=== PATIENT | male | born 1995 | race Caucasian/White ===

== ENCOUNTER 2023-02-16 10:19 | Emergency (ER) | payer OTHER, SELFPAY ==
[2023-02-16 10:29] VITALS: BP 126/82; PULSE 78; RESP 16; TEMP 36.4; O2SAT 100
--- NOTE | 2023-02-16 10:51 | ED.GENADULT ---
HPI - General Adult General Chief complaint: Upper Respiratory Infection Stated complaint: Rt Eye Irritation,Headache,Congestion Time Seen by Provider: 02/16/23 10:52 Source: patient Mode of arrival: ambulatory Limitations: no limitations History of Present Illness HPI narrative: 27-year-old male patient presents to the [facility] with complaints of URI symptoms for the past 2 days. Patient states he has had a lot of pressure to the right side of the sinuses states he takes Janki daily has not been helping. Has had a runny nose and congestion. Denies fevers, body aches or chills. Patient also states he has had some pain up to the forehead and in his head and feels like pins and needles. Patient states that also started 2 days ago. Patient denies any chest pain, shortness of breath, cough or any other concerning symptoms Related Data Home Medications Medication Instructions Recorded Confirmed fexofenadine 180 mg tablet 180 mg PO DAILY 02/16/23 02/16/23 fluticasone propionate 50 2 spray intranasal DAILY 02/16/23 02/16/23 mcg/actuation nasal spray,suspension Allergies Allergy/AdvReac Type Severity Reaction Status Date / Time No Known Allergies Allergy Verified 02/16/23 10:28 Review of Systems Review of Systems: CONSTITUTIONAL: Denies fever, chills, or sweats. EYES: Denies visual changes, redness, or discharge. ENT: positiverhinorrhea, congestion, denies sore throat, or otalgia. positive pins and needle pain to right side of forehead CARDIOVASCULAR: Denies chest pain, palpitations, or edema. RESPIRATORY: Denies cough or dyspnea. GASTROINTESTINAL: Denies abdominal pain, nausea, vomiting, or diarrhea. GENITOURINARY: Denies dysuria or hematuria. SKIN: Denies rash or itching. MUSCULOSKELETAL: Denies back pain, joint pain, or myalgia. NEUROLOGIC: Denies headache, numbness, or weakness. PSYCHIATRIC: Denies anxiety or depression. PMFSH Comments At the time of my signature I agree with nursing past medical history, surgical, social, and family history. There is no relevant family history pertinent to the presenting complaint. Exam Narrative: GENERAL: Well-appearing, well-nourished, and in no acute distress. HEAD: Normocephalic, atraumatic. EYES: PERRLA and EOMI. ENT: Nares with erythema edema noted on the right near, no rhinorrhea or epistaxis. Mucous membranes moist. posterior pharynx no erythema, tonsillar enlargement but there is postnasal drip noted. Bilateral TMs are clear no erythema or foreign bodies the canal. NECK: Supple. No lymphadenopathy CHEST: Clear to auscultation. No respiratory distress. HEART: Regular rate and rhythm. No murmur heard. Normal peripheral pulses. ABDOMEN: Soft, nontender, nondistended, normal active bowel sounds. EXTREMITIES: Normal range of motion. No edema. SKIN: Warm, dry, vesicle rash noted from the frontal lobe of the scalp around the occipital area of the right eye but no eye involvement. The rash does not cross midline. It is tender to the touch. No open wounds or drainage noted NEURO: No focal deficits. Alert and oriented x3. Course Course Level of Care: Express Care Visit Vital Signs Vital signs: Vital Signs Temperature 36.4 C 02/16/23 10:29 Pulse Rate 78 02/16/23 10:29 Respiratory Rate 16 02/16/23 10:29 Blood Pressure 126/82 02/16/23 10:29 Pulse Oximetry 100 02/16/23 10:29 Oxygen Delivery Room Air 02/16/23 10:29 Temperature 36.4 C 02/16/23 10:29 Pulse Rate 78 02/16/23 10:29 Respiratory Rate 16 02/16/23 10:29 Blood Pressure 126/82 02/16/23 10:29 Pulse Oximetry 100 02/16/23 10:29 Oxygen Delivery Room Air 02/16/23 10:29 Vital signs reviewed. Medical Decision Making MDM Narrative Medical decision making narrative: discussed with patient that it does appear that he has a shingles outbreak to the right side of the face. Discussed with patient we will put him on antivirals to decrease the length of ti
== END 2023-02-16 11:07 | disposition home or self-care (01) ==
PROVIDERS: Emergency Provider Nurse Practitioner Family
DX: B02.7 Disseminated zoster (principal); J01.10 Acute frontal sinusitis, unspecified
CPT/HCPCS: 99203; G0463